=== PATIENT | male | born 1940 | race Hispanic/Latino ===

== ENCOUNTER 2022-10-20 05:46 | Observation (INO) | payer OTHER ==
[2022-10-17 11:23] VITALS: BMI 26.6
[2022-10-20] MEDS ORDERED: PHENYLEPHRINE-NS 100 MCG/ML 10 ML SYRINGE ONE ×2 (06:50→07:34)
[2022-10-20] MEDS ORDERED: Vancomycin 1 GM VIAL ONE (06:51)
[2022-10-20] MEDS ORDERED: Phenylephrine 10 MG/ML VIAL ONE (06:51)
[2022-10-20] MEDS ORDERED: Thrombin 5000 UNITS/5 ML VIAL ONE (06:51)
[2022-10-20] MEDS ORDERED: fentaNYL PF 100 MCG/2 ML SYRINGE ONE ×2 (06:51→08:53)
[2022-10-20] MEDS ORDERED: CEFAZOLIN 2 GM VIAL ONE (07:12)
[2022-10-20] MEDS ORDERED: Sodium Chloride 0.9% 100 ML ONE (07:12)
[2022-10-20] MEDS ORDERED: Acetaminophen/Codeine 30-300mg Tablet PO PRN ×2 (07:13)
[2022-10-20] MEDS ORDERED: Promethazine 25 MG TAB PO PRN (07:13)
[2022-10-20] MEDS ORDERED: Ondansetron PF 4 MG/2 ML Vial IVP PRN (07:13)
[2022-10-20] MEDS ORDERED: Cyclobenzaprine 10 MG TAB PO PRN (07:13)
[2022-10-20] MEDS ORDERED: Morphine 2 MG/ML VIAL SLOW IVP PRN (07:13)
[2022-10-20] MEDS ORDERED: traMADol HCl 50 MG TAB PO PRN (07:13)
[2022-10-20] MEDS ORDERED: Mag-Al 1200 mg/1200 mg/30 ML UDCUP PO PRN (07:13)
[2022-10-20] MEDS ORDERED: Milk Of Magnesia 30 ML UDCUP PO PRN (07:13)
[2022-10-20] MEDS ORDERED: Rocuronium Bromide 10 MG/ML (10ML VIAL) ONE (07:34)
[2022-10-20] MEDS ORDERED: Dexamethasone 20 MG/5 ML VIAL ONE (07:34)
[2022-10-20] MEDS ORDERED: NEOSTIGMINE 3 MG/3 ML SYR 3 MG/3 ML SYRINGE ONE (07:34)
[2022-10-20] MEDS ORDERED: ePHEDrine 50 MG/ML VIAL ONE (07:34)
[2022-10-20] MEDS ORDERED: PROPOFOL 200 MG/20 ML VIAL ONE (07:34)
[2022-10-20] MEDS ORDERED: Glycopyrrolate 0.2 MG/ML 5 ML SYRINGE ONE (07:34)
[2022-10-20] MEDS ORDERED: Lidocaine 1% PF 5 ML VIAL ONE (07:34)
[2022-10-20] MEDS ORDERED: Ondansetron PF 4 MG/2 ML Vial ONE (07:34)
[2022-10-20 07:35] LABS: #Basophils 0.1 thou/uL (0.0-0.2); #Eosinphils 0.2 thou/uL (0.0-0.7); #Lymphocytes 3.6 thou/uL (1.20-3.40); #Monocytes 0.9 thou/uL (0.11-0.59); #Neutrophils 3.3 thou/uL (1.40-6.50); %Basophils 0.9 % (0.0-1.0); %Lymphocytes 44.5 % (21.0-51.0); %Monocytes 10.8 % (0.0-10.0); %Neutrophils 40.8 % (42.0-75.0); Hemoglobin 13.3 g/dL (14.0-18.0); Mean Corpuscular HGB CONC 33.2 g/dL (32.0-36.0); Mean Corpuscular Hemoglobin 33.7 pg (27.0-31.0); Mean Platelet Volume 8.6 fL (7.4-10.4); Platelet Count 156 10x3/uL (130-400); RBC Distribution Width 12.9 % (11.5-14.5); Red Blood Cell (RBC) Count 3.95 mill/uL (4.70-6.10); White Blood Cell (WBC) Count 8.2 10x3/uL (4.8-10.8)
[2022-10-20 07:43] LABS: Anion Gap 11 mmol/L (10-20); BUN (Urea Nitrogen) 22 mg/dL (8.4-25.7); Calc. Creatinine Clearance 36 mL/min (70-130); Carbon Dioxide 24 mmol/L (23-31); Chloride 105 mmol/L (98-107); Estimated GFR 40; Glucose 96 mg/dL (83-110); Potassium 4.4 mmol/L (3.5-5.1); Sodium 136 mmol/L (136-145)
[2022-10-20] MEDS ORDERED: Ondansetron HCl/PF 4 MG/2 ML Vial IVP PRN (08:09)
[2022-10-20] MEDS ORDERED: PACU-Morphine 4MG/ML VIAL SLOW IVP PRN (08:09)
[2022-10-20] MEDS ORDERED: Promethazine HCl 25 MG/ML VIAL IM PRN (08:09)
[2022-10-20] MEDS ORDERED: Meperidine HCl/PF 25 MG/ML VIAL SLOW IVP PRN (08:09)
[2022-10-20] MEDS ORDERED: Morphine 4 MG/ML VIAL ONE (09:37)
[2022-10-20] MEDS ORDERED: Fentanyl 100 MCG/2 ML VIAL ONE ×3 (09:37→11:44)
[2022-10-20] MEDS ORDERED: Morphine 2 MG/ML VIAL ONE ×2 (09:52→11:44)
[2022-10-20] MEDS ORDERED: Promethazine HCl 25 MG/ML VIAL ONE (10:40)
[2022-10-20 10:53] LABS: SARS-CoV-2 NAA Rapid Test Not Detected (NotDetected)
[2022-10-20] MEDS ORDERED: Ipratropium/Albuterol 3 ML NEB ONE (12:05)
[2022-10-20] MEDS: Gabapentin 300 MG CAP PO SCH ×3 (12:58→20:18)
[2022-10-20] MEDS: Sodium Chloride 0.9% 1,000 ML IV SCH (12:58)
[2022-10-20] MEDS: Lisinopril 10 MG TAB PO SCH (12:58)
[2022-10-20] MEDS: CEFAZOLIN 2 GM in Sodium Chloride 0.9% 100 ML IVPB SCH ×2 (14:02→23:03)
[2022-10-20 20:02] LABS: Magnesium 2.1 mg/dL (1.6-2.6)
[2022-10-21] MEDS: CEFAZOLIN 2 GM in Sodium Chloride 0.9% 100 ML IVPB SCH (05:11)
[2022-10-21] MEDS ORDERED: Tamsulosin HCl 0.4 MG CAP PO SCH ×2 (06:00→09:00)
[2022-10-21] MEDS: Sodium Chloride 0.9% 1,000 ML IV SCH ×2 (07:48→10:12)
[2022-10-21 08:49] VITALS: BP 143/72; TEMP 98
[2022-10-21] MEDS ORDERED: Sucralfate 1 GM TAB PO SCH (09:00)
[2022-10-21] MEDS ORDERED: Atorvastatin Calcium 40 MG TAB PO SCH (09:00)
[2022-10-21] MEDS: Lisinopril 10 MG TAB PO SCH (09:03)
[2022-10-21] MEDS: Gabapentin 300 MG CAP PO SCH (09:04)
[2022-10-22] MEDS ORDERED: Tamsulosin HCl 0.4 MG CAP PO SCH (09:00)
== END 2022-10-21 14:00 | disposition home or self-care (01) ==
LOC: SDC 05:46 → T4-B 12:57
PROVIDERS: ADMIT Neurological Surgery; ATTEND Neurological Surgery
PROC: 0SG0071 Fusion of Lumbar Vertebral Joint with Autologous Tissue Substitute, Posterior Approach, Posterior Column, Open Approach (ICD-10-PCS; principal; 2022-10-20)
PROC: 0SG3071 Fusion of Lumbosacral Joint with Autologous Tissue Substitute, Posterior Approach, Posterior Column, Open Approach (ICD-10-PCS; 2022-10-20)
DX: M43.16 Spondylolisthesis, lumbar region (principal); M43.17 Spondylolisthesis, lumbosacral region; M48.061 Spinal stenosis, lumbar region without neurogenic claudication; M48.07 Spinal stenosis, lumbosacral region; I25.10 Atherosclerotic heart disease of native coronary artery without angina pectoris; I11.0 Hypertensive heart disease with heart failure; I50.9 Heart failure, unspecified; E78.5 Hyperlipidemia, unspecified; G47.33 Obstructive sleep apnea (adult) (pediatric); N40.0 Benign prostatic hyperplasia without lower urinary tract symptoms; Z87.11 Personal history of peptic ulcer disease; Z79.899 Other long term (current) drug therapy; Z91.040 Latex allergy status; Z95.1 Presence of aortocoronary bypass graft; Z20.822 Contact with and (suspected) exposure to COVID-19
CPT/HCPCS: 20930; 20936; 22612; 22614; 22842; 80048; 83735; 83880; 85025; 93005; 97110; 97116 ×2; C1713 ×3; C1768; C1776; U0002; 36415; 93010; J1100; J2270; J2272; J2370; J2405; J2550; J2704; J3010; J3370; J3490; J7620